=== PATIENT | male | born 1985 | race Caucasian/White ===

== ENCOUNTER 2024-05-28 06:29 | Day surgery (SDC) | payer OTHER ==
[2024-05-28] MEDS: Sodium Chloride 0.9% 1,000 ML IV SCH (07:00)
[2024-05-28] MEDS ORDERED: Midazolam 1 MG/ML 2 ML SDV ONE (07:24)
[2024-05-28] MEDS ORDERED: Propofol 200 MG/20 ML SDV ONE (07:24)
[2024-05-28] MEDS ORDERED: fentaNYL 50 MCG/ML SDV ONE (07:24)
== END 2024-05-28 09:18 | disposition home or self-care (01) ==
LOC: JP.SDS 06:29
PROVIDERS: ATTEND Surgery
DX: K92.2 Gastrointestinal hemorrhage, unspecified (principal); K64.8 Other hemorrhoids; K21.9 Gastro-esophageal reflux disease without esophagitis
CPT/HCPCS: 45398; J2250; J2704; J3010; J7030